=== PATIENT | male | born 1950 | race American Indian/Alaskan Native ===

== ENCOUNTER 2016-07-01 15:20 | Outpatient (CLI) | payer OTHER ==
--- NOTE | 2016-07-02 09:12 | Magnetic Resonance Report ---
MR LOWER EXTREMITY JOINT RIGHT WITHOUT CONTRAST: HISTORY: Right lateral knee pain. TECHNIQUE: Multiple T1 and T2-weighted images with and without fat suppression. COMPARISON: None. FINDINGS: There is a [id number] joint effusion which extends to the suprapatellar bursa. No popliteal cyst is appreciated. The body and anterior portions of the posterior horn of the lateral meniscus are abnormal. There appears to be fragmentation of the posterior body of the lateral meniscus consistent with a grade 3 or grade 4 meniscal tear. The lateral meniscus is within normal limits. The ACL, PCL, MCL and extensor complex are intact and unremarkable. The lateral collateral ligament complex appears to be intact although there is moderate fluid tracking down the fibers of the popliteus muscle. I see no definitive tear of the popliteus. A strain could be considered. Please correlate with the patient. An osteochondral defect is identified within the intracondylar notch of the distal femur measuring up to 1.6 x 1.1 x 0.5 cm. The overlying cartilage appears thinned and irregular. This suggests at least a grade 2 osteochondral defect. This defect is not within the weight-bearing articular surface of the distal femur, but is likely symptomatic in the patellofemoral space when the knee is in flexion. The remainder of the intra-articular cartilage is intact. The retropatellar cartilage is intact. The remaining bone marrow signal is within normal limits. No fracture or bone lesion. IMPRESSION: Joint effusion. Complex tear in the lateral meniscus, as outlined above. Osteochondral defect in the intracondylar notch of the distal femur, as outlined above. Question strain of the popliteus muscle.
== END 2016-07-01 15:21 | disposition home or self-care (01) ==
LOC: MRI 15:20
PROVIDERS: ATTEND Family Medicine Adult Medicine
DX: M25.461 Effusion, right knee (principal)
CPT/HCPCS: 73721